=== PATIENT | male | born 1960 | race Caucasian/White ===

== ENCOUNTER 2023-09-18 21:12 | Observation (INO) | payer OTHER ==
[2023-09-18 23:18] VITALS: BMI 27.1
[2023-09-18] MEDS ORDERED: Guaifenesin DM 100-10/5 ML UDCUP PO PRN (23:39)
[2023-09-18] MEDS ORDERED: Acetaminophen 325 MG TAB PO PRN (23:39)
[2023-09-18] MEDS ORDERED: Calcium Carbonate 500 MG ChewTAB PO PRN (23:39)
[2023-09-18] MEDS ORDERED: Ondansetron PF 4 MG/2 ML Vial IVP PRN (23:39)
[2023-09-18] MEDS ORDERED: Senokot S 8.6-50 MG TAB PO PRN (23:39)
[2023-09-19 01:42] LABS: Anion Gap 15 mmol/L (10-20); BUN (Urea Nitrogen) 13 mg/dL (8.4-25.7); Calc. Creatinine Clearance 82 mL/min (70-130); Calcium 8.6 mg/dL (7.8-10.44); Carbon Dioxide 23 mmol/L (23-31); Chloride 96 mmol/L (98-107); Estimated GFR 70; Glucose 99 mg/dL (80-115); Potassium 3.8 mmol/L (3.5-5.1); Sodium 130 mmol/L (136-145)
[2023-09-19 01:43] LABS: ALT (SGPT) 87 U/L (8-55); AST (SGOT) 48 U/L (5-34); Albumin 3.9 g/dL (3.4-4.8); Alkaline Phosphatase 71 U/L (40-110); Bilirubin, Direct 0.4 mg/dL (0.1-0.3); Bilirubin, Total 0.8 mg/dL (0.2-1.2); Protein, Total 6.7 g/dL (5.8-8.1)
[2023-09-19 06:29] LABS: Anion Gap 14 mmol/L (10-20); BUN (Urea Nitrogen) 13 mg/dL (8.4-25.7); Calc. Creatinine Clearance 78 mL/min (70-130); Calcium 8.9 mg/dL (7.8-10.44); Carbon Dioxide 25 mmol/L (23-31); Chloride 97 mmol/L (98-107); Estimated GFR 66; Glucose 94 mg/dL (80-115); Potassium 3.9 mmol/L (3.5-5.1); Sodium 132 mmol/L (136-145)
[2023-09-19] MEDS: Amlodipine 10 MG TAB PO SCH (09:59)
[2023-09-19] MEDS: Losartan 50 MG TAB PO SCH (10:00)
[2023-09-19] MEDS: Multivitamin W/ Minerals 1 TAB PO SCH (10:00)
[2023-09-19] MEDS: Gabapentin 300 MG CAP PO SCH (10:00)
[2023-09-19] MEDS: Diclofenac 25 MG TABDR...ER PO SCH (10:01)
[2023-09-19] MEDS: Thiamine 100 MG TAB PO SCH (10:02)
[2023-09-19] MEDS: Folic Acid 1 MG TAB PO SCH (10:03)
[2023-09-19 13:01] LABS: Anion Gap 13 mmol/L (10-20); BUN (Urea Nitrogen) 15 mg/dL (8.4-25.7); Calc. Creatinine Clearance 78 mL/min (70-130); Calcium 8.7 mg/dL (7.8-10.44); Carbon Dioxide 24 mmol/L (23-31); Chloride 97 mmol/L (98-107); Estimated GFR 66; Glucose 109 mg/dL (80-115); Potassium 3.7 mmol/L (3.5-5.1); Sodium 130 mmol/L (136-145)
[2023-09-19] MEDS ORDERED: Sodium Chloride 0.9% 1,000 ML IV SCH (16:15)
[2023-09-19 17:26] LABS: Creatinine, Urine 139.39 mg/dL (63-166)
[2023-09-19 20:20] LABS: Sodium 131 mmol/L (136-145)
[2023-09-20 07:42] LABS: Anion Gap 15 mmol/L (10-20); BUN (Urea Nitrogen) 17 mg/dL (8.4-25.7); Calc. Creatinine Clearance 62 mL/min (70-130); Calcium 8.6 mg/dL (7.8-10.44); Carbon Dioxide 22 mmol/L (23-31); Chloride 101 mmol/L (98-107); Estimated GFR 50; Glucose 102 mg/dL (80-115); Sodium 134 mmol/L (136-145)
[2023-09-20] MEDS: Folic Acid 1 MG TAB PO SCH (08:33)
[2023-09-20] MEDS: Amlodipine 10 MG TAB PO SCH (08:33)
[2023-09-20] MEDS: Thiamine 100 MG TAB PO SCH (08:33)
[2023-09-20] MEDS: Losartan 50 MG TAB PO SCH (08:34)
[2023-09-20] MEDS: Gabapentin 300 MG CAP PO SCH (08:34)
[2023-09-20] MEDS: Multivitamin W/ Minerals 1 TAB PO SCH (08:34)
[2023-09-20] MEDS: Diclofenac 25 MG TABDR...ER PO SCH (08:35)
[2023-09-20 08:43] VITALS: TEMP 97.7
[2023-09-20 14:30] VITALS: BP 137/75
== END 2023-09-20 15:21 | disposition home or self-care (01) ==
LOC: CSHTELE 22:49 → INTOOBSV 22:49
PROVIDERS: ADMIT Student in an Organized Health Care Education/Training Program; ATTEND Internal Medicine
DX: U07.1 COVID-19 (principal); E87.1 Hypo-osmolality and hyponatremia; N17.9 Acute kidney failure, unspecified; G89.29 Other chronic pain; I10 Essential (primary) hypertension; R74.01 Elevation of levels of liver transaminase levels; F10.90 Alcohol use, unspecified, uncomplicated; F41.9 Anxiety disorder, unspecified; Z79.899 Other long term (current) drug therapy
CPT/HCPCS: 36415; 71046; 80048; 82570; 83880; 83930; 83935; 84300; 96372; 96374; G0378; J1650; J2405; J7050